=== PATIENT | male | born 1960 | race Caucasian/White ===

== ENCOUNTER 2017-01-04 15:02 | Inpatient (IN) | payer OTHER, MEDICARE ==
[2017-01-04] VITALS (7 sets, daily range): BP systolic 155–170; BP diastolic 81–89; PULSE 70–83; RESP 16–18; TEMP 97.7–98.9; O2SAT 97–98
[~2017-01-04] VITALS: Ht 195.6 cm; Wt 185.3 kg
[~2017-01-04 15:02] MED LIST: BUPR150XL PO; CYAN1000P IM; FURO1TAB93 PO; IMOD2TAB PO; LOSA50TA PO; NEUR600T PO; PERC7.5T13 PO; POTA10IN2 PO; QUET300 PO; WARF1TAB PO; ZOFR4TAB3 SL
--- NOTE | 2017-01-04 17:14 | PD ---
HPI Chief Complaint: right leg infection Time Seen by Provider: 16:57 Travel History International Travel<30 days: No Contact w/Intl Traveler<30days: No Traveled to known affect area: No History of Present Illness HPI 56-year-old male complains of pain redness swelling right low leg. Patient states that he has an injury to the right leg about 4 weeks ago. Patient states that he struck the right leg against an object. Patient was seen by personal physician about 2 weeks ago and was advised of observation. Patient states that he has increasing redness swelling and contacted his physician again. Prescription of Septra DS was called in for patient 3 days ago. Patient has been taking Septra DS as directed. Patient states that he has increasing redness swelling since then. Patient denies any fever chills. 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 INR was checked yesterday and was 6.5. Patient was advised to hold off on Coumadin since yesterday. Patient denies any headache. Patient denies any neck pain. Patient denies any chest pain or shortness of breath. Patient denies abdominal pain. Patient denies any focal weakness or numbness of extremity. Patient has history of hypertension. 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) Anxiety: No Depression: Yes Cancer: No Cardiovascular Problems: No Cerebrovascular Accident: Yes (TIA OCTOBER 2009) Diabetes: No Diminished Hearing: No Deep Vein Thrombosis: Yes (X 4) Endocrine: No Gastrointestinal Disorders: Yes Genitourinary: No Headaches: Yes Hepatitis: No Hiatal Hernia: No Hypertension: Yes Immune Disorder: No Implanted Vascular Access Dvce: No Kidney Stones: Yes Musculoskeletal: No Neurologic: No Psychiatric: No Respiratory: No Migraines: Yes Thyroid Disease: No Past Surgical History Abdominal Surgery: Yes (GASTRIC BYPASS 01/22/10; HERNIA REPAIR) Cardiac Surgery: No Cholecystectomy: Yes Endocrine Surgery: No Genitourinary Surgery: No Neurologic Surgery: No Thoracic Surgery: No Tonsillectomy: Yes Other Surgery: Yes (HERNIA REPAIR) Social History Alcohol Use: Yes (OCCASIONAL) Tobacco Use: No Substance Use: No Allergies-Medications (Allergen,Severity, Reaction): Coded Allergies: penicillin G (Unverified Allergy, Severe, HIVES, 01/04/17) Reported Meds & Prescriptions Reported Meds & Active Scripts Active Reported Bactrim DS (Sulfamethoxazole-Trimethoprim) 800-160 Mg Tab 1 Tab PO BID Potassium Chloride ER (Potassium Chloride) 10 Meq Tab 10 Meq PO DAILY Quetiapine (Quetiapine Fumarate) 300 Mg Tab 600 Mg PO HS Ropinirole 0.25 Mg Tab 0.25 Mg PO HS Warfarin 10 Mg Tab 10 Mg PO DAILY Ms Contin (Morphine Sulfate) 30 Mg Tablet.er 30 Mg PO BID Losartan (Losartan Potassium) 50 Mg Tab 50 Mg PO DAILY Gabapentin 600 Mg Tab 1,200 Mg PO HS Gabapentin 600 Mg Tab 600 Mg PO DAILY Furosemide 40 Mg Tab 60 Mg PO DAILY Cyanocobalamin Inj (Cyanocobalamin) 1,000 Mcg/Ml Inj 1,000 Mcg IM Q30D Bupropion HCl 100 Mg Tab 450 Mg PO BID Review of Systems General / Constitutional: No: Fever Eyes: No: Visual changes HENT: No: Headaches Cardiovascular: No: Chest Pain or Discomfort Respiratory: No: Shortness of Breath Gastrointestinal: No: Abdominal Pain Genitourinary: No: Dysuria Musculoskeletal: Positive: Edema, Pain Skin: No Rash Neurologic: No: Weakness Psychiatric: No: Depression Endocrine: No: Polydipsia Hematologic/Lymphatic: No: Easy Bruising Physical Exam Narrative GENERAL: Well-nourished, well-developed patient. SKIN: Focused skin assessment warm/dry. HEAD: Normocephalic. EYES: No scleral icterus. No injection or drainage. NECK: Supple, trachea midline. No JVD or lymphadenopathy. CARDIOVASCULAR: Regular rate and rhythm without murmurs, gallops, or rubs. RESPIRATORY: Breath sounds equal bilaterally. No accessory muscle use. GASTROINTESTINAL: Abdomen soft, non-tender, nondistended. MUSCULOSKELETAL: No cyanosis, or edema. BACK: Nontender without obvious deformity. No CVA tenderness. Patient has an area of skin abrasion with redness swelling extending from ankle to below the right-sided knee on the right low leg. Clear fluids discharge. No induration. Increase in heat noted. No calf tenderness. Negative Homans sign. Data Data Last Documented VS Vital Signs Date Time Temp Pulse Resp B/P (MAP) Pulse Ox O2 Delivery O2 Flow Rate FiO2 01/04/17 18:03 69 16 01/04/17 17:15 97 Room Air 01/04/17 15:09 97.7 Orders Orders Complete Blood Count With Diff (01/04/17 17:06) Comprehensive Metabolic Panel (01/04/17 17:06) Prothrombin Time / Inr (Pt) (01/04/17 17:06) Act Partial Throm Time (Ptt) (01/04/17 17:06) Blood Culture (01/04/17 17:06) Iv Access Insert/Monitor (01/04/17 17:06) Ecg Monitoring (01/04/17 17:06) Oximetry (01/04/17 17:06) Sodium Chlor 0.9% 1000 Ml Inj (Ns 1000 M (01/04/17 17:15) Vancomycin Inj (Vancomycin Inj) (01/04/17 17:15) Labs Laboratory Tests Test 01/04/17 17:55 White Blood Count 6.7 TH/MM3 Red Blood Count 4.99 MIL/MM3 Hemoglobin 13.0 GM/DL Hematocrit 40.4 % Mean Corpuscular Volume 80.9 FL Mean Corpuscular Hemoglobin 26.0 PG Mean Corpuscular Hemoglobin Concent 32.2 % Red Cell Distribution Width 14.3 % Platelet Count 257 TH/MM3 Mean Platelet Volume 7.7 FL Neutrophils (%) (Auto) 69.3 % Lymphocytes (%) (Auto) 17.4 % Monocytes (%) (Auto) 5.8 % Eosinophils (%) (Auto) 5.0 % Basophils (%) (Auto) 2.5 % Neutrophils # (Auto) 4.6 TH/MM3 Lymphocytes # (Auto) 1.2 TH/MM3 Monocytes # (Auto) 0.4 TH/MM3 Eosinophils # (Auto) 0.3 TH/MM3 Basophils # (Auto) 0.2 TH/MM3 CBC Comment DIFF FINAL Differential Comment Prothrombin Time 64.4 SEC Prothromb Time International Ratio 5.4 RATIO Activated Partial Thromboplast Time 47.7 SEC Blood Urea Nitrogen 17 MG/DL Creatinine 0.99 MG/DL Random Glucose 99 MG/DL Total Protein 7.9 GM/DL Albumin 3.4 GM/DL Calcium Level 8.6 MG/DL Alkaline Phosphatase 118 U/L Aspartate Amino Transf (AST/SGOT) 13 U/L Alanine Aminotransferase (ALT/SGPT) 11 U/L Total Bilirubin 0.3 MG/DL Sodium Level 140 MEQ/L Potassium Level 4.2 MEQ/L Chloride Level 106 MEQ/L Carbon Dioxide Level 26.1 MEQ/L Anion Gap 8 MEQ/L Estimat Glomerular Filtration Rate 79 ML/MIN MDM Medical Decision Making Medical Screen Exam Complete: Yes Emergency Medical Condition: Yes Interpretation(s) 1850 p.m. CBC within normal limit. CMP within normal limit. INR 5.4. Differential Diagnosis Differential diagnosis including cellulitis, abscess. Narrative Course 56-year-old male with redness swelling tenderness right low leg. Status post injury to right low leg 4 weeks ago. Patient on day #3 of DS. Vancomycin 1 g IV given. Diagnosis Primary Impression: Cellulitis of right leg Admitting Information Admitting Physician Requests: it Evangelist Cole MD Jan 04, 2017 17:13
[2017-01-04] MEDS ORDERED: VANCOMYCIN INJ 1,000 MG in SODIUM CHLOR 0.9% 250 ML INJ 250 ML IV ONE (17:15)
[2017-01-04] MEDS ORDERED: ROPI0.25 PO (18:23)
[2017-01-04] MEDS ORDERED: POTA10TA2 PO (18:23)
[2017-01-04] MEDS ORDERED: WARF-22 PO (18:23)
[2017-01-04] MEDS ORDERED: GABA600T PO ×2 (18:23)
[2017-01-04] MEDS ORDERED: BUPR100T4 PO (18:23)
[2017-01-04] MEDS ORDERED: CYAN1000P IM (18:23)
[2017-01-04] MEDS ORDERED: MS C30TA5 PO (18:23)
[2017-01-04] MEDS ORDERED: FURO40TA PO (18:23)
[2017-01-04] MEDS ORDERED: LOSA50TA PO (18:23)
[2017-01-04] MEDS ORDERED: QUET1TAB10 PO (18:23)
[2017-01-04] MEDS ORDERED: BACT800T5 PO (18:24)
[2017-01-04 18:25] LABS: AUTOMATED NEUTROPHIL # 4.6 TH/MM3 (1.8-7.7); BASOPHIL # 0.2 TH/MM3 (0-0.2); BASOPHIL % 2.5 % (0.0-2.0); EOSINOPHIL # 0.3 TH/MM3 (0-0.4); HEMATOCRIT 40.4 % (39.0-51.0); HEMO FLAGS DIFF FINAL; LYMPH % 17.4 % (9.0-44.0); LYMPHOCYTE # 1.2 TH/MM3 (1.0-4.8); MEAN CELL VOLUME 80.9 FL (80.0-100.0); MEAN CORPUSCULAR HGB CONC 32.2 % (32.0-36.0); MONO % 5.8 % (0.0-8.0); NEUT % 69.3 % (16.0-70.0); PLATELET COUNT 257 TH/MM3 (150-450); RED BLOOD COUNT 4.99 MIL/MM3 (4.50-5.90); RED CELL DISTRIBUTION WIDTH 14.3 % (11.6-17.2); WHITE BLOOD COUNT 6.7 TH/MM3 (4.0-11.0)
[2017-01-04 18:33] LABS: CHLORIDE 106 MEQ/L (98-107); POTASSIUM 4.2 MEQ/L (3.5-5.1); SODIUM (NA) 140 MEQ/L (136-145)
[2017-01-04 18:36] LABS: ANION GAP 8 MEQ/L (5-15); BICARBONATE 26.1 MEQ/L (21.0-32.0); BLOOD UREA NITROGEN 17 MG/DL (7-18)
[2017-01-04 18:38] LABS: APTT (PATIENT) 47.7 SEC (24.3-30.1); INTERNATIONAL NORMALIZED RATIO 5.4 RATIO; PROTHROMBIN TIME - PATIENT 64.4 SEC (9.8-11.6)
[2017-01-04 18:39] LABS: ALT (GPT) 11 U/L (12-78); AST (GOT) 13 U/L (15-37); GLOMERULAR FILTRATION RATE 79 ML/MIN (>89)
[2017-01-04 18:41] LABS: TOTAL BILIRUBIN ADULT 0.3 MG/DL (0.2-1.0)
[2017-01-04 18:42] LABS: ALKALINE PHOSPHATASE 118 U/L (45-117)
[2017-01-04] MEDS: SODIUM CHLOR 0.9% 1000 ML INJ 1,000 ML IV SCH (18:44)
[2017-01-04] MEDS ORDERED: ACETAMINOPHEN 500 MG CPLT PO PRN (21:00)
[2017-01-04] MEDS ORDERED: Vancomycin Consult Pharmacy 1 EA OTHER SCH (21:00)
[2017-01-04] MEDS ORDERED: SODIUM CHLORIDE 0.9% FLUSH 10 ML FLUSH IV FLUSH PRN (21:00)
[2017-01-04] MEDS: SODIUM CHLORIDE 0.9% FLUSH 10 ML FLUSH IV FLUSH SCH (21:00)
[2017-01-04] MEDS ORDERED: buPROPion HCL 100 MG TAB PO SCH (21:15)
[2017-01-04] MEDS ORDERED: PILL SPLITTER OTHER PRN (21:45)
[2017-01-04] MEDS ORDERED: ACETAMINOPHEN/HYDROcodone 325 MG/5 MG TAB PO PRN (22:15)
[2017-01-04] MEDS: GABAPENTIN 300 MG CAP PO SCH (23:10)
[2017-01-04] MEDS: MORPHINE SULFATE 30 MG CONTROLLED RELEASE TAB PO SCH (23:10)
[2017-01-04] MEDS: KETOROLAC TROMETHAMINE 30 MG/ML (IVP) VIAL IVP PRN (23:11)
[2017-01-05] MEDS: VANCOMYCIN IV SCH ×3 (00:05→22:27)
[2017-01-05] MEDS: SODIUM CHLORID 0.9% IV SCH ×3 (00:05→22:27)
[2017-01-05] MEDS: QUEtiapine FUMARATE 300 MG TAB PO SCH ×2 (00:06→22:20)
[2017-01-05 01:34] VITALS: BP 179/94; PULSE 94; RESP 20; TEMP 96.7; O2SAT 97
[2017-01-05] MEDS: SODIUM CHLOR 0.9% 1000 ML INJ 1,000 ML IV SCH ×2 (03:15→13:15)
[2017-01-05 04:20] VITALS: RESP 20
[2017-01-05 07:21] LABS: BASOPHIL % 0.3 % (0.0-2.0); EOSINOPHIL # 0.3 TH/MM3 (0-0.4); HEMATOCRIT 36.9 % (39.0-51.0); HEMO FLAGS DIFF FINAL; LYMPH % 21.4 % (9.0-44.0); LYMPHOCYTE # 1.3 TH/MM3 (1.0-4.8); MEAN CELL VOLUME 81.8 FL (80.0-100.0); MEAN CORPUSCULAR HEMOGLOBIN 26.7 PG (27.0-34.0); MEAN CORPUSCULAR HGB CONC 32.6 % (32.0-36.0); MONO % 8.3 % (0.0-8.0); PLATELET COUNT 235 TH/MM3 (150-450); RED BLOOD COUNT 4.51 MIL/MM3 (4.50-5.90); RED CELL DISTRIBUTION WIDTH 14.5 % (11.6-17.2); WHITE BLOOD COUNT 6.1 TH/MM3 (4.0-11.0)
[2017-01-05 07:34] LABS: BICARBONATE 28.1 MEQ/L (21.0-32.0)
[2017-01-05 08:00] VITALS: BP 144/89; PULSE 79; RESP 19; TEMP 95.6; O2SAT 97
[2017-01-05] MEDS: SODIUM CHLORIDE 0.9% FLUSH 10 ML FLUSH IV FLUSH SCH ×2 (09:00→22:21)
[2017-01-05] MEDS ORDERED: CYANOCOBALAMIN 1000 MCG/ML VIAL IM SCH (09:00)
[2017-01-05] MEDS: MORPHINE SULFATE 30 MG CONTROLLED RELEASE TAB PO SCH ×2 (11:26→22:20)
[2017-01-05] MEDS: FUROSEMIDE 40 MG TAB PO SCH (11:27)
[2017-01-05] MEDS: LOSARTAN 50 MG TAB PO SCH (11:27)
[2017-01-05] MEDS: buPROPion HCL 150 MG SUSTAINED RELEASE TAB PO SCH (11:27)
[2017-01-05] MEDS: POTASSIUM CHLORIDE 10 MEQ CONTROLLED RELEASE TAB PO SCH (11:27)
[2017-01-05] MEDS: GABAPENTIN 300 MG CAP PO SCH ×2 (11:28→22:21)
[2017-01-05 12:00] VITALS: BP 150/99; PULSE 83; RESP 20; TEMP 96.6; O2SAT 96
[2017-01-05 16:00] VITALS: BP 156/95; PULSE 82; RESP 17; TEMP 96.1; O2SAT 96
[2017-01-05 17:12] LABS: INTERNATIONAL NORMALIZED RATIO 3.2 RATIO; PROTHROMBIN TIME - PATIENT 37.4 SEC (9.8-11.6)
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
[2017-01-05 20:00] VITALS: BP 130/66; PULSE 80; RESP 16; TEMP 98.8; O2SAT 96
[2017-01-05] MEDS: KETOROLAC TROMETHAMINE 30 MG/ML (IVP) VIAL IVP PRN (22:25)
[2017-01-06] VITALS: BP 102/82; PULSE 82; RESP 18; TEMP 98.8; O2SAT 98
[2017-01-06 07:10] LABS: INTERNATIONAL NORMALIZED RATIO 2.2 RATIO; PROTHROMBIN TIME - PATIENT 25.3 SEC (9.8-11.6)
[2017-01-06 08:00] VITALS: BP 168/96; PULSE 57; RESP 20; TEMP 96.7; O2SAT 93
[2017-01-06] MEDS: POTASSIUM CHLORIDE 10 MEQ CONTROLLED RELEASE TAB PO SCH (08:34)
[2017-01-06] MEDS: GABAPENTIN 300 MG CAP PO SCH ×2 (08:34→22:53)
[2017-01-06] MEDS: LOSARTAN 50 MG TAB PO SCH (08:34)
[2017-01-06] MEDS: MORPHINE SULFATE 30 MG CONTROLLED RELEASE TAB PO SCH ×2 (08:35→22:53)
[2017-01-06] MEDS: FUROSEMIDE 40 MG TAB PO SCH (08:36)
[2017-01-06] MEDS: buPROPion HCL 150 MG SUSTAINED RELEASE TAB PO SCH (08:37)
[2017-01-06] MEDS: SODIUM CHLORIDE 0.9% FLUSH 10 ML FLUSH IV FLUSH SCH ×2 (08:38→22:53)
[2017-01-06] MEDS: SODIUM CHLOR 0.9% 1000 ML INJ 1,000 ML IV SCH ×3 (08:40→22:54)
[2017-01-06] MEDS ORDERED: VANCOMYCIN TROUGH ONE (10:45)
[2017-01-06] MEDS: VANCOMYCIN IV SCH (11:35)
[2017-01-06] MEDS: SODIUM CHLORID 0.9% IV SCH (11:35)
[2017-01-06 12:00] VITALS: BP 168/98; PULSE 96; RESP 20; TEMP 98.2; O2SAT 96
--- NOTE | 2017-01-06 13:04 | HHI.PR ---
Subjective Remarks Feeling much better, wants to take a shower, Iv infiltrated Objective Vitals Vital Signs Date Time Temp Pulse Resp B/P (MAP) Pulse Ox O2 Delivery O2 Flow Rate FiO2 01/06/17 12:00 98.2 96 20 168/98 (121) 96 01/06/17 08:00 96.7 57 20 168/96 (120) 93 01/06/17 00:00 98.8 82 18 102/82 (89) 98 01/05/17 20:00 98.8 80 16 130/66 (87) 96 01/05/17 16:00 96.1 82 17 156/95 (115) 96 Result Diagram: 01/05/17 0655 01/06/17 1020 Objective Remarks Sittting at side of the bed Lungs cta Heart RRR extremities Rt extremity area of erythema diminished, area is snuff drier A/P Problem List: (1) Cellulitis of right leg ICD Codes: L03.115 - Cellulitis of right lower limb Status: Acute Plan: clinically much improved today will switch to po clindamycin (2) Bipolar 1 disorder ICD Codes: F31.9 - Bipolar 1 disorder Status: Chronic Plan: cont home medications, doing well (3) Coumadin toxicity ICD Codes: T60.4X1A - Coumadin toxicity Status: Resolved Plan: resume coumadin 10 mg po daily follow inr Latesha Green MD Jan 06, 2017 13:04
[2017-01-06] MEDS: CLINDAMYCIN 150 MG CAP PO SCH ×3 (14:04→22:52)
[2017-01-06 16:00] VITALS: BP 132/80; PULSE 104; RESP 20; TEMP 97.4; O2SAT 94
[2017-01-06] MEDS ORDERED: WARFARIN SOD 10 MG TAB PO SCH (16:00)
[2017-01-06 20:15] VITALS: BP 165/77; PULSE 84; RESP 20; TEMP 96; O2SAT 96
[2017-01-06] MEDS: QUEtiapine FUMARATE 300 MG TAB PO SCH (22:53)
[2017-01-07] VITALS: BP 111/74; PULSE 107; RESP 20; TEMP 96.2; O2SAT 94
[2017-01-07] MEDS ORDERED: PHARMACY ORDERED LAB ONE (05:00)
[2017-01-07] MEDS: SODIUM CHLOR 0.9% 1000 ML INJ 1,000 ML IV SCH (05:22)
[2017-01-07] MEDS: CLINDAMYCIN 150 MG CAP PO SCH ×2 (05:22→11:20)
[2017-01-07 06:37] LABS: INTERNATIONAL NORMALIZED RATIO 1.7 RATIO; PROTHROMBIN TIME - PATIENT 19.7 SEC (9.8-11.6)
[2017-01-07 08:00] VITALS: BP 139/88; PULSE 72; RESP 20; TEMP 95.7; O2SAT 96
[2017-01-07] MEDS: SODIUM CHLORIDE 0.9% FLUSH 10 ML FLUSH IV FLUSH SCH (09:00)
[2017-01-07] MEDS: MORPHINE SULFATE 30 MG CONTROLLED RELEASE TAB PO SCH (09:59)
[2017-01-07] MEDS: LOSARTAN 50 MG TAB PO SCH (09:59)
[2017-01-07] MEDS: POTASSIUM CHLORIDE 10 MEQ CONTROLLED RELEASE TAB PO SCH (09:59)
[2017-01-07] MEDS: FUROSEMIDE 40 MG TAB PO SCH (10:00)
[2017-01-07] MEDS: buPROPion HCL 150 MG SUSTAINED RELEASE TAB PO SCH (10:00)
[2017-01-07] MEDS: GABAPENTIN 300 MG CAP PO SCH (10:00)
--- NOTE | 2017-01-07 10:33 | HHI.PR ---
Subjective Remarks no complaints, no pain Objective Vitals Vital Signs Date Time Temp Pulse Resp B/P (MAP) Pulse Ox O2 Delivery O2 Flow Rate FiO2 01/07/17 00:00 96.2 107 20 111/74 (86) 94 01/06/17 20:15 96.0 84 20 165/77 (106) 96 01/06/17 16:00 97.4 104 20 132/80 (97) 94 01/06/17 12:00 98.2 96 20 168/98 (121) 96 Result Diagram: 01/05/17 0655 01/06/17 1020 Objective Remarks Lying in the bed Lungs cta Heart RRR extremities Rt extremity area of erythema diminished, area is dry, not weeping A/P Problem List: (1) Cellulitis of right leg ICD Codes: L03.115 - Cellulitis of right lower limb Status: Acute Plan: clinically much improved today tolerating clindamycin will discharge on 5 more days of treatment (2) Bipolar 1 disorder ICD Codes: F31.9 - Bipolar 1 disorder Status: Chronic Plan: cont home medications, doing well (3) Coumadin toxicity ICD Codes: T60.4X1A - Coumadin toxicity Status: Resolved Plan: resumed coumadin 10 mg po daily inr subtherapeutic today lovenox given one time discharge on coumadin 15 mg today and han with stat inr on Assessment and Plan discharge home today on oral antibiotics Latesha Green MD Jan 07, 2017 10:33
[2017-01-07] MEDS ORDERED: CLIN1CAP6 PO (10:52)
[2017-01-07] MEDS ORDERED: WARF-22 PO (10:52)
[2017-01-07] MEDS ORDERED: ENOXAPARIN SODIUM 100 MG/ML SYRINGE SQ SCH (11:00)
[2017-01-07 12:00] VITALS: BP 145/84; PULSE 99; RESP 21; TEMP 96; O2SAT 95
[2017-01-07] MEDS ORDERED: VANCOMYCIN INJ 2,000 MG in SODIUM CHLORID 0.9% 500 ML INJ 500 ML IV SCH (12:00)
[2017-01-08] MEDS ORDERED: PHARMACY ORDERED LAB ONE (23:45)
== END 2017-01-07 13:58 | disposition home or self-care (01) | DRG 603 ==
LOC: PHED 15:02 → PHEDA 19:23 → PH3A 21:44
PROVIDERS: ADMIT Legal Medicine; ATTEND Legal Medicine
DX: L03.115 Cellulitis of right lower limb (principal); D68.51 Activated protein C resistance; D68.59 Other primary thrombophilia; Z68.42 Body mass index [BMI] 45.0-49.9, adult; E66.01 Morbid (severe) obesity due to excess calories; I10 Essential (primary) hypertension; G89.29 Other chronic pain; M54.2 Cervicalgia; M54.5 Low back pain; R60.0 Localized edema; T45.515A Adverse effect of anticoagulants, initial encounter; F31.9 Bipolar disorder, unspecified; Z86.711 Personal history of pulmonary embolism; Z86.73 Personal history of transient ischemic attack (TIA), and cerebral infarction without residual deficits; Z86.718 Personal history of other venous thrombosis and embolism; Z98.84 Bariatric surgery status
CPT/HCPCS: 76937; 80048; 80053; 80202; 82565; 85025; 85610; 85730; 87040; 87205; 96365; J1650; J1885; J3370; J3420; J7030; J7040; J7050